=== PATIENT | female | born 1960 | race Caucasian/White ===

== ENCOUNTER 2024-06-12 10:28 | Outpatient (OUT) | payer BC, SELFPAY ==
--- NOTE | 2024-06-12 | XR_ITS ---
The [address] [address] Patient Name: MIGUEL A WISE MRN: [id number] date: 1960 Sex: F Assigned Patient Location: Current Patient Location: Accession/Order Number: [id number] Exam Date: 06/12/2024 10:50 Report Date: 06/14/2024 05:27 At the request of: NICOLE LAZO Procedure: XR foot LT min 3V PROCEDURE: XR foot LT min 3V HISTORY: LEFT FOOT PAIN COMPARISON: XR foot left 01/05/2024 FINDINGS: BONES:No fracture, acute abnormality, or significant arthropathy. Minimal flattening of plantar arch. SOFT TISSUES:No visible soft tissue swelling. EFFUSION:None visible. OTHER: Negative. XR/XR foot LT min 3V IMPRESSION: 1. No acute bone abnormality, significant degenerative joint disease. Slight flattening of plantar arch. Electronically authenticated by: JACKI BARNHART Date: 06/14/2024 05:27
== END 2024-06-12 10:29 | disposition home or self-care (01) ==
PROVIDERS: Visit Provider Podiatrist Foot & Ankle Surgery
DX: M79.672 Pain in left foot (principal)
CPT/HCPCS: 73630